=== PATIENT | female | born 1980 | race Caucasian/White ===

== ENCOUNTER 2016-08-21 08:30 | Emergency (ER) | payer SELFPAY ==
[2016-08-21 08:41] VITALS: BP 123/78; PULSE 84; TEMP 98; BMI 44.6
--- NOTE | 2016-08-21 08:58 | EDPRACDOC ---
- General Information Chief Complaint: Flu-Like Symptoms Stated Complaint: FLU LIKE SYMPTOMS Time Seen by Provider: 08/21/16 08:55 Information Source: Patient Mode Of Arrival: Car Home Medications: Home Medications Hydrocodone Bit/Acetaminophen [Hydrocodon-Acetaminophen 5-325] 1 tab PO Q4H PRN #10 tab 01/31/15 Guaifenesin-Codeine [Robitussin AC] 10 ml PO Q6-8H 5 Days 08/21/16 Levofloxacin [Levaquin] 500 mg PO DAILY #10 tab 08/21/16 Allergies/Adverse Reactions: Allergies Allergy/AdvReac Type Severity Reaction Status Date / Time amoxicillin Allergy Anaphylaxis Verified 08/21/16 08:41 * aspirin Allergy Bleeding Verified 08/21/16 08:41 azithromycin Allergy Anaphylaxis Verified 08/21/16 08:41 * Penicillins Allergy Anaphylaxis Verified 08/21/16 08:41 * streptomycin Allergy Anaphylaxis Verified 08/21/16 08:41 * - History of Present Illness Symptoms Started: SEVERAL DAYS Symptoms: Reports: Cough Recent Medications: Reports: None Relevant History Of: Reports: None Shortness of Breath: None Cough Frequency: Intermittent Cough Description: Reports: Productive Rhinorrhea: Reports: Green Ear Symptoms: Reports: None Associated Signs and Symptoms: Reports: Cough ED Past Medical History - History Reviewed Yes Nurses notes reviewed and agree except as marked - Patient Medical History Psychological History: Denies: Depression Surgical History: Reports: Tonsillectomy/Adnoidectomy. Denies: Hysterectomy - Social Medical History Smoking Status: Light tobacco smoker (less than 5/day) EDM Review of Systems - Review of Systems ROS Negative Except as Marked: Yes All systems reviewed and were negative except as marked - Physical Exam Constitutional: Alert (Awake), No apparent distress Oriented to: Time, Person, Place Last recorded Vital Signs: Last Vital Signs Temp 98.0 F 08/21/16 08:37 Pulse 84 08/21/16 08:37 Resp 18 08/21/16 08:37 BP 123/78 08/21/16 08:37 Pulse Ox 97 08/21/16 08:37 Oxygen Pulse Oxygen Saturation 97 O2 Device Oxygen Flow Rate Fraction of Inspired Oxygen ( FIO2) - HEENT Head: Normal ( normocephalic) Eye Exam: Normal (PERRL, EOMI, Sclera white) Oropharynx: Normal (Pharynx:Moist without exudate,Gums-no swelling) ENT EAC: Normal TMJ: Normal Nose: No Symptoms Reported (septum midline) Neck: Normal (FROM, trachea at midline) - Respiratory/Cardiovascular Respiratory: Normal - CTA (BBS clear to auscultation without adventitious sounds ) Cardiovascular: Normal (RRR without murmur, gallop or rub) - GI Auscultation: Normal (NABS) Palpation: Normal (Soft,No rebound or guarding, non distended) Tenderness: Non tender Asencio's Sign: Negative - Musculoskeletal Back: Normal (Non-Tender) Extremities: Normal (Normal tone, Pulses 2+ No cyanosis or edema, FROM) - Integumentary Skin: Normal, Warm, Dry Lymphatics: Normal (no adenopathy) - Neurologic Memory Impaired: Normal Motor Function: Normal (Normal tone, Pulses 2+ No cyanosis or edema, FROM) Cranial Nerve: Normal (CN II-X11 intact sensation, strength 5/5) Cerebellar: Normal Mood Description: Normal Perception: Normal Decision Time to Discharge: 08:57 - Departure Yes I personally saw and evaluated the patient. Disposition: Home Condition: Good Final Diagnosis: Acute bronchitis Instructions: Acute Bronchitis (ED) Education/Counseling Given To: Patient Education/Counseling Given Regarding: Diagnosis, Treatment, Prognosis Referrals: None,No Provider [Primary Care Provider] - One Week Wally Wilson MD [Staff Physician] - One Week Prescriptions: Guaifenesin-Codeine [Robitussin AC] 10 ml PO Q6-8H 5 Days Levofloxacin [Levaquin] 500 mg PO DAILY #10 tab
== END 2016-08-21 09:15 | disposition home or self-care (01) ==
LOC: ED 08:30
DX: J20.9 Acute bronchitis, unspecified (principal)
CPT/HCPCS: 99282